=== PATIENT | female | born 1970 | race Caucasian/White ===

== ENCOUNTER 2024-02-16 23:10 | Emergency (ER) | payer SELFPAY ==
[~2024-02-16] VITALS: Ht 177.8 cm; Wt 77.0 kg
[2024-02-16 23:21] VITALS: O2SAT 99
[2024-02-17] MEDS: OXYCODONE HCL/ACETAMINOPHEN 5/325MG TABLET PO ONE
[2024-02-17] MEDS: LISINOPRIL 20MG TABLET PO ONE
[2024-02-17 00:48] LABS: HEMATOCRIT 38.3 % (36.0-48.0); MEAN CORPUSCULAR HEMOGLOBIN 31.8 pg (28.0-32.0); MEAN CORPUSCULAR VOLUME 93.7 fL (81.0-99.0); PLATELET 230 x1000/uL (130-400); RED BLOOD CELL COUNT 4.09 mill/uL (4.2-5.4); RED CELL DISTRIBUTION WIDTH 12.8 % (11.6-14.6); WHITE BLOOD COUNT 11.5 x1000/uL (4.5-11.0)
[2024-02-17 00:51] LABS: CHLORIDE 102 mEq/L (98-107); SODIUM 133 mEq/L (136-145)
[2024-02-17 00:52] LABS: CALCIUM 9.1 mg/dL (8.7-10.4); CARBON DIOXIDE 24 mEq/L (21-32)
[2024-02-17 00:57] LABS: CREATININE 0.8 mg/dL (0.6-1.0); GLUCOSE 131 mg/dL (70-105); UREA NITROGEN BLOOD 10 mg/dL (9-23)
[2024-02-17 00:59] LABS: ALANINE AMINOTRANSFERASE 29 IU/L (10-49); ALBUMIN 4.4 g/dL (3.2-4.8); ASPARTATE AMINOTRANSFERASE 27 IU/L (<34); BILIRUBIN DIRECT 0.2 mg/dL (<=3.0); BILIRUBIN TOTAL 0.7 mg/dL (0.1-1.0); PROTEIN TOTAL 6.6 g/dL (6.0-8.3)
[2024-02-17] MEDS: MORPHINE SULFATE 4 MG/ML INJ (FOR IV/IM USE) IV ONE (01:05)
[2024-02-17 01:17] LABS: HCG SCREEN NEGATIVE
[2024-02-17] MEDS: NICARDIPINE 40MG/200ML PREMIX 200 ML IV PRN (01:39)
[2024-02-17 02:15] VITALS: TEMP 97.9
[2024-02-17 02:48] VITALS: BP 174/92; PULSE 95; RESP 15
[2024-02-17] MEDS: MORPHINE SULFATE 4 MG/ML INJ (FOR IV/IM USE) IV NR (02:48)
[2024-02-17] MEDS: IOHEXOL-350 100 ML BOTTLE ONE (02:52)
[2024-02-17] MEDS: FAMOTIDINE 20MG/2ML VIAL IV ONE (03:17)
[2024-02-17] MEDS: ONDANSETRON HCL 4MG/2ML INJ IV ONE (03:17)
== END 2024-02-17 03:26 | disposition short-term general hospital (02) ==
LOC: ER 23:10
DX: R51.9 Headache, unspecified (principal); M54.2 Cervicalgia; I10 Essential (primary) hypertension
CPT/HCPCS: 36415; 99291; 80076; 80048; 84703; 85027; 70496; 70498; 70450; 96365; 96375; 96376; Q9967; Z7610 ×3; J3490; J2405; J2270